=== PATIENT | male | born 2005 | race Caucasian/White ===

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

== ENCOUNTER 2024-05-05 14:39 | Emergency (ER) | payer OTHER, SELFPAY ==
--- NOTE | ~2024-05-05 | XR_ITS ---
EXAMINATION: XR wrist RT min 3V, XR forearm RT 2V DATE: 05/05/2024 15:24 INDICATION: Right wrist and forearm injury post fall from ladder TECHNIQUE: 1. Anteroposterior and lateral views of the right forearm were obtained. 2. Posteroanterior, ulnar deviation, oblique, and lateral views of the right wrist were obtained. COMPARISON: none FINDINGS: 2-3 mm posterior and 1 mm radial displacement of an intra-articular fracture extending across the dis albaro right radius. The fracture involves the scaphoid fossa where there is up to 2 mm step-off. The fr acture extends radially across the radial sided cortex at the base of the radial styloid process. Tin y calcific density near the tip of the ulnar styloid process without definitive donor site which coul d represent either age-indeterminate tiny avulsion fracture fragment or heterotopic ossicle related t o chronic soft tissue injury. No fracture or proximal right forearm or in the visualized right hand. All normal joint spaces at the right elbow, wrist and visualized hand. IMPRESSION: 1. Mildly displaced intra-articular fracture at the distal right radius. 2. Possible tiny age-indeterminate ulnar styloid avulsion fracture fragment versus tiny heterotopic o ssicle related to chronic soft tissue injury. Reviewed, dictated and finalized at location A. IMPRESSION: 1. Mildly displaced intra-articular fracture at the distal right radius. 2. Possible tiny age-indeterminate ulnar styloid avulsion fracture fragment daxa kevin tiny heterotopic ossicle related to chronic soft tissue injury.
[2024-05-05 15:10] VITALS: BP 153/84; PULSE 78; RESP 16; TEMP 36.4; O2SAT 100
--- NOTE | 2024-05-05 15:15 | WC.ED.TRAUMA ---
HPI - Trauma General Chief Complaint: Extremity Injury, Upper <Josephine Amador APRN - Last Filed: 05/05/24 15:16> Stated Complaint: fall - arm pain <Josephine Amador APRN - Last Filed: 05/05/24 15:16> Time Seen by Provider: 05/05/24 15:05 <Josephine Amador APRN - Last Filed: 05/05/24 15:16> Focused HPI: Patient is a 18-year-old male who presents to the ER after falling off a ladder and landing on his R arm. GENERAL: Well-appearing, well-nourished, and in no acute distress. HEAD: Normocephalic, atraumatic. CHEST: Clear to auscultation. ?No respiratory distress. HEART: Regular rate and rhythm.? NEURO: ?Alert and oriented x3. Patient screened in triage and initial orders placed.? ?Additional care and disposition to be based upon?diagnostic testing and treatment. <Josephine Amador APRN - Last Filed: 05/05/24 15:16> History of Present Illness HPI narrative: Patient 18-year-old gentleman presents emergency department chief complaint of right wrist pain. Patient reports that fell off a ladder landed on his right wrist and had a PVC pipe with the wrist. Patient reports no laceration no head injury patient denies back pain chest pain or abdominal pain <Santy Oliva MD - Last Filed: 05/05/24 19:44> Related Data Allergies/Adverse Reactions: Allergies Allergy/AdvReac Type Severity Reaction Status Date / Time No Known Allergies Allergy Verified 03/14/22 11:08 <Josephine Amador APRN - Last Filed: 05/05/24 15:16> Review of Systems Review of Systems: A 10 system review of systems was completed on the patient and is negative except for what is stated in the HPI. Nursing and ancillary documentation was reviewed. <Santy Oliva MD - Last Filed: 05/05/24 19:44> PMFSH Social History Social History: Social History Smoking status: Current every day smoker Alcohol intake: never Substance use: current Living arrangements: with family Occupation/Education: occupation Gender identity (if verbalized by the patient): Male Sexual Orientation (if Verbalized by the Patient): Straight or Heterosexual Spiritual care concerns: No <Josephine Amador APRN - Last Filed: 05/05/24 15:16> Exam Narrative: GENERAL: Well-appearing, well-nourished, and in no acute distress. HEAD: Normocephalic, atraumatic. EYES: PERRLA and EOMI. ENT: Nares clear, no rhinorrhea or epistaxis. Mucous membranes moist. NECK: Supple. CHEST: Clear to auscultation. No respiratory distress. HEART: Regular rate and rhythm. No murmur heard. Normal peripheral pulses. ABDOMEN: Soft, nontender, nondistended, normal active bowel sounds. EXTREMITIES: Normal range of motion there is tenderness to palpation in the right wrist. No edema. SKIN: Warm, dry, no rash. NEURO: No focal deficits. Alert and oriented x3. PSYCH: Normal mood and affect. <Santy Oliva MD - Last Filed: 05/05/24 19:44> Course Vital Signs Vital signs: Vital Signs Temperature 36.4 C 05/05/24 15:10 Pulse Rate 78 05/05/24 15:10 Respiratory Rate 16 05/05/24 15:10 Blood Pressure 153/84 H 05/05/24 15:10 Pulse Oximetry 100 05/05/24 15:10 Oxygen Delivery Room Air 05/05/24 15:10 Temperature 36.4 C 05/05/24 19:19 Pulse Rate 80 05/05/24 19:19 Respiratory Rate 18 05/05/24 19:19 Blood Pressure 142/82 H 05/05/24 19:19 Pulse Oximetry 100 05/05/24 19:19 Oxygen Delivery Room Air 05/05/24 15:10 <Josephine Amador APRN - Last Filed: 05/05/24 15:16> Vital Signs Temperature 36.4 C 05/05/24 15:10 Pulse Rate 78 05/05/24 15:10 Respiratory Rate 16 05/05/24 15:10 Blood Pressure 153/84 H 05/05/24 15:10 Pulse Oximetry 100 05/05/24 15:10 Oxygen Delivery Room Air 05/05/24 15:10 Temperature 36.4 C 05/05/24 19:19 Pulse Rate 80 05/05/24 19:19 Respiratory Rate 18 05/05/24 19:19 Blood Pressure 142/82 H 05/05/24 19:19 Pulse Oximetry 100 05/05/24 19:19 Oxygen Delivery Room Air 05/05/24 15:10 <Santy Oliva MD - Last Filed: 05/05/24 19:44> MDM - Trauma MDM Narrative Medical decision making narrative: Differential diagnosis includes fracture, sprain, contusion Plain film x-ray showed 2-3 mm posterior and 1 mm radial displacement of an intra-articular fracture extending across the distal right radius. The fracture involves the scaphoid fossa where there is up to 2 mm step-off. The fracture extends radially across the radial sided cortex at the base of the radial styloid process. Tiny calcific density near the tip of the ulnar styloid process without definitive donor site which could represent either age-indeterminate tiny avulsion fracture fragment or heterotopic ossicle related to chronic soft tissue injury. No fracture or proximal right forearm or in the visualized right hand. All normal joint spaces at the right elbow, wrist and visualized hand. IMPRESSION: 1. Mildly displaced intra-articular fracture at the distal right radius. 2. Possible tiny age-indeterminate ulnar styloid avulsion fracture fragment versus tiny heterotopic ossicle related to chronic soft tissue injury. Case was discussed with orthopedics who recommended Hand surgery be involved case was discussed with Dr. Avina <Santy Oliva MD - Last Filed: 05/05/24 19:44> Discharge Plan Discharge Clinical Impression: Distal radius fracture, right <Josephine Amador APRN - Last Filed: 05/05/24 15:16> Patient Disposition: Home, Self-Care <Josephine Amador APRN - Last Filed: 05/05/24 15:16> Condition: Stable <Josephine Amador APRN - Last Filed: 05/05/24 15:16> Instructions: Antibiotic Form, Wrist Fracture in Adults (ED) <Josephine Amador APRN - Last Filed: 05/05/24 15:16> Additional Instructions: Please call Dr. Harris's office in the morning. <Josephine Amador APRN - Last Filed: 05/05/24 15:16> Patient Language: Argentine <Josephine Amador APRN - Last Filed: 05/05/24 15:16> Prescriptions: New hydrocodone-acetaminophen 5-325 mg tablet 1 tablet PO Q6H PRN (Reason: pain) 3 Days Qty: 12 0RF <Josephine Amador APRN - Last Filed: 05/05/24 15:16> Follow-up/Referrals: Janey Avina MD [Physician] - Karel Pandya MD [Primary Care Provider] - <Josephine Amador APRN - Last Filed: 05/05/24 15:16> Time of Disposition: 19:42 <Josephine Amador APRN - Last Filed: 05/05/24 15:16> 19:42 <Santy Oliva MD - Last Filed: 05/05/24 19:44>
--- OUTSIDE RECORDS SUMMARY | 2024-05-05 17:18 | XMS_ITS | Referral Summary ---
Author Organization [facility] Address [address] [place] [address] Care Team Providers Care Peoplesoft Financials Consultant Name Role Phone Brigitte Glasgow MD Primary Care Provider [phone] Source Comments [facility],non-owned Affiliates and Associated Physician Practices is amultiple site organization consisting of ambulatory clinics and hospital sitesin [place], [place], [place] and [place]. This disclosure is being madepursuant to the Care Everywhere program and may not contain all information available regarding this patient. Last updated 17.[facility] [employer] Allergies No known active allergies Medications * Be aware that medications may not be up to date on this document. Alwaysverify current medications with the patient. Medication Sig Dispensed Refills Start Date End Date Status fluticasone propionate (FLONASE) 50 MCG/ACT nasal sprayIndications:Acute sinusitis, recurrence not specified, unspecified location [place] 2 (two) sprays into each nostril once daily 1 Each 12/13/2020 Active albuterol HFA (PROVENTIL;VENTOLIN;MD OAIR) 108 (90 Base) MCG/ACT inhalerIndications:Acu te bronchitis, unspecified organism Inhale 2 (two) puffs by mouth every 6 hours as needed for Wheezing or Cough 1 g 12/13/2020 Active Active Problems No known active problems Social History Tobacco Use Types Packs/Day Years Used Date Smoking Tobacco: Never Smokeless Tobacco: Never Alcohol Use Standard Drinks/Week Comments Never 0 (1 standard drink = 0.6 oz pur e alcohol) AUDIT-C Answer Date Recorded Q1: How often do you have a drink containing alc ohol? Never 10/19/2019 Average Number of Drinks Not on file 08/30/2 020 Frequency of Binge Drinking Not on file 09/21 Sex and Gender Information Value Date Recorded Sex Assigned at Not on file Gender Identity Not on file Sexual Orientation Not on file Last Filed Vital Signs Vital Sign Reading Time Taken Comments Blood Pressure 132/70 08/25/2020 6:30 PM CDT Pulse 94 12/13/2020 6:36 PM CDT Temperature 37.1 C (98.8 F) 12/13/2020 6:36 PM CDT Respiratory Rate 18 12/13/2020 6:36 PM CDT Oxygen Saturation 95% 12/13/2020 6:36 PM CDT Inhaled Oxygen Concentration - - Weight 77.1 kg (170 lb) 12/13/2020 6:36 PM CDT Height 172.7 cm (5' 8 ) 12/13/2020 6:36 PM CDT Body Mass Index 25.85 12/13/2020 6:36 PM CDT Plan of Treatment Not on file Care Teams Pe[employer] Financ[employer] Consultant Relationship Specialty Start Date End Date Brigitte Glasgow MD [address] [facility] [place] [address] PCP - General Pediatrics 10/19/19
--- OUTSIDE RECORDS SUMMARY | 2024-05-05 17:18 | XMS_ITS | Patient Health Summary ---
Author Organization [facility] Address [address] [place] [address] Care Team Providers Care Plaster Model And Mold Maker Name Role Phone Brigitte Glasgow MD Primary Care Provider [phone] Note from [facility],non-owned Affiliates and Associated Physician Practices is amultiple site organization consisting of ambulatory clinics and hospital sitesin [place], [place], [place] and [place]. This disclosure is being madepursuant to the Care Everywhere program and may not contain all information available regarding this patient. Last updated 17.[facility] [employer] Allergies No known active allergies Medications * Be aware that medications may not be up to date on this document. Alwaysverify current medications with the patient. * fluticasone propionate (FLONASE) 50 MCG/ACT nasal spray(Started 12/13/2020) [place] 2 (two) sprays into each nostril once daily * albuterol HFA (PROVENTIL;VENTOLIN;PROAIR) 108 (90 Base) MCG/ACT inhaler (Started 12/13/2020) Inhale 2 (two) puffs by mouth every 6 hours as needed for Wheezing or Cough Active Problems No known active problems Social History Tobacco Use Types Packs/Day Years Used Date Smoking Tobacco: Never Smokeless Tobacco: Never Alcohol Use Standard Drinks/Week Comments Never 0 (1 standard drink = 0.6 oz pur e alcohol) AUDIT-C Answer Date Recorded Q1: How often do you have a drink containing alc ohol? Never 10/19/2019 Average Number of Drinks Not on file 020 Frequency of Binge Drinking Not on [...] Mass Index 25.85 12/13/2020 6:36 PM CDT Procedures * SARS-COV-2 (COVID-19) AG (AMB) POCT(Performed 12/13/2020) Performed for Acute bronchitis, unspecified organism * STREP A SCREEN - POINT OF CARE (AMB) STL(Performed 08/25/2020) Performed for Acute pharyngitis, unspecified etiology Results * SARS-COV-2 (COVID-19) AG (AMB) POCT (12/13/2020 6:46 PM CDT) SARS-CoV-2 Ag Negative Negative [facility] Lot # [id number] [facility] Expiration Date 03/09/22 [facility] Instrument Serial Number [id number] [facility] COVID Internal Control Acceptable Acceptable [facility] Microbiology SPECIMEN FROM NASAL FOSSAE / Unknown 12/13/2020 6:46 PM CDT Frantz Skinner RADIO INTERFERENCE TROUBLE SHOOTER-DIGITAL CONTENT SPECIALIST LAB - POINT OF CARE ORDERABLES [facility] [address] [phone] * STREP A SCREEN (08/25/2020 6:24 PM CDT) Strep A Rapid POCT Negative Negative [facility] Strep A Internal Control Present [facility] Lot # [id number] [facility] Expiration Date [id number] [facility] Throat ENTIRE THROAT (SURFACE REGION OF NECK) / Unknown 08/25/2020 6:24 PM CDT Reesedemetrius Gaitan RADIO INTERFERENCE TROUBLE SHOOTER-DIGITAL CONTENT SPECIALIST LAB - POINT OF CARE ORDERABLES [facility] [address] [phone] Care Teams Plaster Model And Mold Maker Relationship Specialty Start Date End Date Brigitte Glasgow MD [address] [facility] [place] [address] PCP - General Pediatrics 10/19/19
--- OUTSIDE RECORDS SUMMARY | 2024-05-05 17:18 | XMS_ITS | Encounter Summary ---
Author Organization [facility] [address] [place] [address] Care Team Providers Care Knitting Tester Name Role Phone Brigitte Glasgow MD Primary Care Provider [phone] Reason for Visit * Reason Onset Date Comments Appointment 09/16/2019 Returned Call 09/16/2019 Encounter Details Date Type Department Care Team (Late st Contact Info) Description 09/16/2019 Telephone [facility] [address] [facility] [address] [place] [address] Provider, Baldomero Prather [place] Appointment; Returned Call Social History Tobacco Use Types Packs/Day Years Used Date Smoking Tobacco: Never Assessed Sex and Gender Information Value Date Recorded Sex Assigned at Not on file Gender Identity Not on file Sexual Orientation Not on file COVID-19 Exposure Response Date Recorded In the last month, have you been in contact with someone who was confirmed or suspected to have Coronavirus / COVID-19? Yes 09/15/2019 5:04 PM CDT documented as of this encounter Miscellaneous Notes * Telephone Encounter - Nery Martin APRN-CNP - 09/16/2019 11:07 AM CDT Mom states that pt is coming in for COVID swab, he has order from his PCP. Mother advised that we do not do only covid swabbing here ordered by PCP. Mother states understanding. * Telephone Encounter - Lee Ann Mendenhall - 09/16/2019 10:53 AM CDT Who is calling?MOTHER If other than self is caller listed on the HIPAA? NO HIPAA If caller is anyone other than listed above, where are they calling from? CELL PHONE What is the reason for call? QUESTION ABOUT VISIT Expected Response from the Clinic? CALL BACK JEANNIE CHASE [phone] documented in this encounter Plan of Treatment Not on file documented as of this encounter Visit Diagnoses Not on filedocumented in this encounter Additional Health Concerns Infection Onset Date Last Indicated Resolved Time COVID-19 Under Investigation 12/13/2020 12/13/2020 12/13/2020 6:48 PM CDT documented as of this encounter Care Teams Knitting Tester Relationship Specialty Start Date End Date Brigitte Glasgow MD [address] [facility] [place] [address] PCP - General Pediatrics 10/19/19 documented as of this encounter
--- OUTSIDE RECORDS SUMMARY | 2024-05-05 17:18 | XMS_ITS | Clinical Summary ---
Author Organization [facility] Address [address] [place] [id number] Care Team Providers Care Contour Path Tape Mill Operator Name Role Phone Brigitte Glasgow MD Primary Care Provider [phone] Allergies No known active allergies Medications No known medications Active Problems No known active problems Encounters Date Type Department Care Team Description 03/10/2024 12:43 PM PEER COUNSELOR - 03/10/2024 11:59 PM PEER COUNSELOR Hospital Encounter [address] [address] Pilonidal abscess Discharge Disposition: Discharge to home or self care 03/10/2024 12:15 PM PEER COUNSELOR Office Visit [facility] Care at [address] [address] Nery Martin NP Pilonidal abscess (Primary Dx) from Last 3 Months Social History Tobacco Use Types Packs/Day Years Used Date Smoking Tobacco: Never Sex and Gender Information Value Date Recorded Sex Assigned at Not on file Legal Sex Male 11:22 AM CDT Gender Identity Not on file Sexual Orientation Not on file Obstetrics History Last Filed Vital Signs Vital Sign Reading Time Taken Comments Blood Pressure 116/58 03/10/2024 12:25 PM PEER COUNSELOR Pulse 104 03/10/2024 12:25 PM PEER COUNSELOR Temperature 36.9 C (98.4 F) 03/10/2024 12:25 PM PEER COUNSELOR Respiratory Rate 20 03/10/2024 12:25 PM PEER COUNSELOR Oxygen Saturation 99% 03/10/2024 12:25 PM PEER COUNSELOR Inhaled Oxygen Concentration - - Weight 98.4 kg (217 lb) 03/10/2024 12:25 PM PEER COUNSELOR Height 167.6 cm (5' 6 ) 09/23/2018 9:21 AM CDT Body Mass Index - - Plan of Treatment Health Maintenance Due Date Last Done Comments Depression Screening 2003 Hepatitis C Screening 2003 Meningococcal B Vaccine (1 of 2 - Standard) 2019 Regular Well Visit/Exam 18-64 07/26/2021 Covid-19 Vaccine (3 - season) 2023 10/09/2020, 09/18/2020 Influenza Vaccine (#1) 2023 DTaP/Tdap/Td Vaccine (7 - Td or Tdap) 09/23/2024 09/23/2014, 07/28/2008, 01/10/2005, Additional history exists Hepatitis B Screening Completed 08/23/2004 , 2003, 2003 Pneumococcal vaccine <65 Completed 005, 02/11/2004, 2003, Additional history exists Varicella Vaccines Completed 09/24/2008, 01/10/2005 Meningococcal Vaccine Aged Out 09/23/2014 No roberto jasmyne eligible based on patient's age to complete this topic HPV Vaccines Completed 09/18/2018, 07/24/2017 Procedures Procedure Name Priority Date/Time Associated Diagnosis Comments AEROBIC AND ANAEROBIC CULTURE AND GRAM STAIN Routine 03/10/2024 12:43 PM PEER COUNSELOR Pilonidal abscess INCISION AND DRAINAGE Routine 03/10/2024 12:15 PM PEER COUNSELOR Pilonidal abscess from Last 3 Months Results * (ABNORMAL) Aerobic and anaerobic culture and gram stain Abscess Buttocks (03/10/2024 12:43 PM PEER COUNSELOR) Direct Specimen Exam Stain: Few polymorphonuclear leukocytes seen. Moderate Gram Negative Bacilli Moderate Gram Positive [place] Comment:Testing performed by : [facility], [address] [place] [address] Report Final Report: Moderate Mixed aerobic and anaerobic microorganisms (.) [place] Comment:Testing performed by : [facility], [address] [place]., [address] Organism MIXED AEROBIC AND ANAEROBIC MICROORGANISMS [place] Abscess (Buttocks) 03/10/2024 12:43 PM PEER COUNSELOR 03/10/2024 10:42 PM PEER COUNSELOR Narrative [place] VANCE - 03/14/2024 12:01 PM PEER COUNSELOR Specimen received on an ESwab. Testing performed by [facility] Microbiology Laboratory ([phone]) Specimens submitted from normally sterile body sites will have all bacterial morphotypes identified. Specimens that contain grossly mixed jerome and/or are from body sites that are not normally sterile will be examined for Staphylococcus aureus, Pseudomonas aeruginosa, beta-hemolytic strep, vancomycin-resistant Enterococcus, Bacteroides, Parabacteroides, Clostridium perfringens and fungus. If any of these are isolated, the organism will be reported. Current interpretive data was last revised on 2019. Nery Martin NP [facility] Final Result [place] [id number] [address] Department of Laboratories [place] [id number] * Incision and Drainage (03/10/2024 12:15 PM PEER COUNSELOR) Narrative Speedy Flores MD - 03/10/2024 12:15 PM PEER COUNSELOR Nery Martin NP 03/10/2024 12:49 PM Incision and Drainage Performed by: Nery Martin NP Authorized by: Nery Martin NP Consent Given by: Patient Timeout: prior to procedure the correct patient, procedure, and site was verified Verbal consent obtained: Yes Risks, alternatives, and patient questions discussed: Yes Type: Abscess Location: gluteal cleft. Scalpel size: 11 Incision type: Single straight Incision depth: Subcutaneous Complexity: Simple Drainage: Purulent (malodorous) Drainage amount: Moderate Wound treatment: Wound left open Patient tolerance: Patient tolerated the procedure well with no immediate complications Nery Martin NP IN CLINIC/BEDSIDE ORDERABLES Fi nal Result from Last 3 Months Insurance [facility] H[facility]/PPO Address: [address] [address] [place] [address] [employer] [facility] H[employer]/PPO Address: [address] [address] [place] [address] Care Teams Contour Path Tape Mill Operator Relationship Specialty Start Date End Date Brigitte Glasgow MD [address] [place] [address] PCP - General Pediatrics 09/20/18
--- OUTSIDE RECORDS SUMMARY | 2024-05-05 17:18 | XMS_ITS | Clinical Summary ---
Author Organization [facility] Address [address] [place] [address] Care Team Providers Care Inweaver Name Role Phone Brigitte Glasgow MD Primary Care Provider [phone] Source Comments [facility],non-owned Affiliates and Associated Physician Practices is amultiple site organization consisting of ambulatory clinics and hospital sitesin [place], [place], [place] and [place]. This disclosure is being madepursuant to the Care Everywhere program and may not contain all information available regarding this patient. Last updated 17.[facility] [employer] Allergies No known active allergies Medications * Be aware that medications may not be up to date on this document. Alwaysverify current medications with the patient. Medication Sig Dispensed Refills Start Date End Date Status fluticasone propionate (FLONASE) 50 MCG/ACT nasal sprayIndications:Acute sinusitis, recurrence not specified, unspecified location [place] 2 (two) sprays into each nostril once daily 1 Each 12/13/2020 Active albuterol HFA (PROVENTIL;VENTOLIN;IA OAIR) 108 (90 Base) MCG/ACT inhalerIndications:Acu te [...] 12/13/2020 6:36 PM CDT Plan of Treatment Health Maintenance Due Date Last Done Comments HIV SCREENING 07/26/2018 HPV VACCINE (1 - Male 3-dose series) 07/26/2018 MENINGOCOCCAL (Group B) VACCINE SHARED DECISION-MAKING (1 of 2 - Standard) 2019 HEPATITIS C SCREENING 07/22/2021 DTAP/TDAP/TD VACCINES (1 - Tdap) 07/26/2022 HEPATITIS B VACCINE (1 of 3 - 19+ 3-dose series) 07/26/2022 COVID-19 VACCINE (3 - 2023-2 5 season) 2023 10/09/2020, 09/18/2020 INFLUENZA VACCINE (#1) 2023 DEPRESSION SCREENING 02/20/2024 10/19/2019 ZOSTER VACCINE (1 of 2) 07/26/2053 HIB VACCINE Aged Out No longer eligi ble based on patient's age to complete this topic MENINGOCOCCAL GROUPS A/C/Y/W VACCINE Aged Out No longer eligible b ased on patient's age to complete this topic PNEUMOCOCCAL VACCINE Aged Out No long er eligible based on patient's age to complete this topic Care Teams Inweaver Relationship Specialty Start Date End Date Brigitte Glasgow MD [address] [facility] [place] [address] PCP - General Pediatrics 10/19/19
--- OUTSIDE RECORDS SUMMARY | 2024-05-05 17:18 | XMS_ITS | Referral Summary ---
Author Organization [facility] Medical Office Building B Address [address] [place] [address] Care Team Providers Care Operater Name Role Phone Brigitte Glasgow MD Primary Care Provider [phone] Encounters Date Type Department Care Team Description 03/10/2024 12:43 PM SHOWER SCREEN INSTALLER - 03/10/2024 11:59 PM SHOWER SCREEN INSTALLER Hospital Encounter [address] [address] Pilonidal abscess Discharge Disposition: Discharge to home or self care 03/10/2024 12:15 PM SHOWER SCREEN INSTALLER Office Visit [facility] [address] [address] Nery Martin NP Pilonidal abscess (Primary Dx) from Last 3 Months Allergies No known active allergies Medications No known medications Active Problems No known active problems Social History Tobacco Use Types Packs/Day Years Used Date Smoking Tobacco: Never Sex and Gender Information Value Date Recorded Sex Assigned at Not on file Legal Sex Male 11:22 AM CDT Gender Identity Not on file Sexual Orientation Not on file Last Filed Vital Signs Vital Sign Reading Time Taken Comments Blood Pressure 116/58 03/10/2024 12:25 PM SHOWER SCREEN INSTALLER Pulse 104 03/10/2024 12:25 PM SHOWER SCREEN INSTALLER Temperature 36.9 C (98.4 F) 03/10/2024 12:25 PM SHOWER SCREEN INSTALLER Respiratory Rate 20 03/10/2024 12:25 PM SHOWER SCREEN INSTALLER Oxygen Saturation 99% 03/10/2024 12:25 PM SHOWER SCREEN INSTALLER Inhaled Oxygen Concentration - - Weight 98.4 kg (217 lb) 03/10/2024 12:25 PM SHOWER SCREEN INSTALLER Height 167.6 cm (5' 6 ) 09/23/2018 9:21 AM CDT Body Mass Index - - Plan of Treatment Not on file Procedures Procedure Name Priority Date/Time Associated Diagnosis Comments AEROBIC AND ANAEROBIC CULTURE AND GRAM STAIN Routine 03/10/2024 12:43 PM SHOWER SCREEN INSTALLER Pilonidal abscess INCISION AND DRAINAGE Routine 03/10/2024 12:15 PM SHOWER SCREEN INSTALLER Pilonidal abscess from Last 3 Months Results * (ABNORMAL) Aerobic and anaerobic culture and gram stain Abscess Buttocks (03/10/2024 12:43 PM SHOWER SCREEN INSTALLER) Direct Specimen Exam Stain: Few polymorphonuclear leukocytes seen. Moderate Gram Negative Bacilli Moderate Gram Positive Cocci Comment:Testing performed by : [facility], [address] [place]., [address] Report Final Report: Moderate Mixed aerobic and anaerobic microorganisms (.) [facility] Comment:Testing performed by : [facility], [address] [place]., [address] Organism MIXED AEROBIC AND ANAEROBIC MICROORGANISMS [facility] Abscess (Buttocks) 03/10/2024 12:43 PM SHOWER SCREEN INSTALLER 03/10/2024 10:42 PM SHOWER SCREEN INSTALLER Narrative [facility] - 03/14/2024 12:01 PM SHOWER SCREEN INSTALLER Specimen received on an ESwab. Testing performed by [facility] Microbiology Laboratory ([phone]) Specimens submitted from normally sterile body sites [...] 2019. Nery Martin NP LAB MICROBIOLOGY - [facility] Final Result [facility] [id number] [address] Department [place] [address] * Incision and Drainage (03/10/2024 12:15 PM SHOWER SCREEN INSTALLER) Narrative Speedy Flores MD - 03/10/2024 12:15 PM SHOWER SCREEN INSTALLER Nery Martin NP 03/10/2024 12:49 PM Incision [...] nal Result from Last 3 Months Insurance [facility] H[facility]/PPO Address: [address] [phone] CHOICE PLUS [facility] HMO/PPO Address: [facility] [id number] [place] [id number] Care Teams Operater Relationship Specialty Start Date End Date Brigitte Glasgow MD [address] [place] [address] PCP - General Pediatrics 09/20/18
--- OUTSIDE RECORDS SUMMARY | 2024-05-05 18:03 | XMS_ITS | Encounter Summary ---
Author Organization [facility] [address] [place] [address] Care Team Providers Care Chemical Milling Processor Name Role Phone Brigitte Glasgow MD Primary Care Provider [phone] Reason for Visit * Reason Onset Date Comments Appointment 09/16/2019 Returned Call 09/16/2019 Encounter Details Date Type Department Care Team (Late st Contact Info) Description 09/16/2019 Telephone [facility] [address] [facility] [address] [place] [address] Provider, Baldomero Prather [place] Appointment; Returned Call Social History Tobacco Use [...] from the Clinic? CALL BACK JEANNIE CHASE [phone] documented in this encounter Plan of Treatment Not on file documented as of this encounter Visit Diagnoses Not on filedocumented in this encounter Additional Health Concerns Infection Onset Date Last Indicated Resolved Time COVID-19 Under Investigation 12/13/2020 12/13/2020 12/13/2020 6:48 PM CDT documented as of this encounter Care Teams Chemical Milling Processor Relationship Specialty Start Date End Date Brigitte Glasgow MD [address] [facility] [place] [address] PCP - General Pediatrics 10/19/19 documented as of this encounter
--- OUTSIDE RECORDS SUMMARY | 2024-05-05 18:03 | XMS_ITS | Patient Health Summary ---
Author Organization [facility] Address [address] [facility] [place] [address] Care Team Providers Care Gemologist Name Role Phone Brigitte Glasgow MD Primary Care Provider Note from [facility],non-owned Affiliates and Associated Physician Practices is amultiple site organization consisting of ambulatory clinics and hospital sitesin [place], [place], [place] and [place]. This disclosure is being madepursuant to the Care Everywhere program and may not contain all information available regarding this patient. Last updated 17.[facility] [employer] Allergies No known active allergies Medications * Be aware that medications may not be up to date on this document. Alwaysverify current medications with the patient. * fluticasone propionate (FLONASE) 50 MCG/ACT nasal spray(Started 12/13/2020) [place] 2 (two) sprays into each nostril once [...] Negative Negative [facility] Lot # [id number] [facility] Expiration Date 03/09/22 [facility] Instrument Serial Number [id number] [facility] COVID Internal Control Acceptable Acceptable [facility] Microbiology SPECIMEN FROM NASAL FOSSAE / Unknown 12/13/2020 6:46 PM CDT Frantz Skinner MOBILE UI/UX DESIGNER-HYDROELECTRIC PLANT MAINTAINER LAB - POINT OF CARE ORDERABLES [facility] [address] [phone] * STREP A SCREEN (08/25/2020 6:24 PM CDT) Strep A Rapid POCT Negative Negative [facility] Strep A Internal Control Present [facility] Lot # [id number] [facility] Expiration Date [id number] [facility] Throat ENTIRE THROAT (SURFACE REGION OF NECK) / Unknown 08/25/2020 6:24 PM CDT Reesedemetrius Gaitan MOBILE UI/UX DESIGNER-HYDROELECTRIC PLANT MAINTAINER LAB - POINT OF CARE ORDERABLES [facility] [address] [phone] Care Teams Gemologist Relationship Specialty Start Date End Date Brigitte Glasgow MD [address] [facility] [place] [address] PCP - General Pediatrics 10/19/19
--- OUTSIDE RECORDS SUMMARY | 2024-05-05 18:03 | XMS_ITS | Clinical Summary ---
Author Organization [facility] Medical Office Building B Address [address] [place] [address] Care Team Providers Care Recreational Director Name Role Phone Brigitte Glasgow MD Primary Care Provider [phone] Allergies No known active allergies Medications No known medications Active Problems No known active problems Encounters Date Type Department Care Team Description 03/10/2024 12:43 PM INVESTMENT STRATEGIST - 03/10/2024 11:59 PM INVESTMENT STRATEGIST Hospital Encounter [address] [address] Pilonidal abscess Discharge Disposition: Discharge to home or self care 03/10/2024 12:15 PM INVESTMENT STRATEGIST Office Visit [facility] Medical [facility] Care at [address] [address] Nery Martin NP Pilonidal abscess [...] Comments Blood Pressure 116/58 03/10/2024 12:25 PM INVESTMENT STRATEGIST Pulse 104 03/10/2024 12:25 PM INVESTMENT STRATEGIST Temperature 36.9 C (98.4 F) 03/10/2024 12:25 PM INVESTMENT STRATEGIST Respiratory Rate 20 03/10/2024 12:25 PM INVESTMENT STRATEGIST Oxygen Saturation 99% 03/10/2024 12:25 PM INVESTMENT STRATEGIST Inhaled Oxygen Concentration - - Weight 98.4 kg (217 lb) 03/10/2024 12:25 PM INVESTMENT STRATEGIST Height 167.6 cm (5' 6 ) 09/23/2018 [...] AND GRAM STAIN Routine 03/10/2024 12:43 PM INVESTMENT STRATEGIST Pilonidal abscess INCISION AND DRAINAGE Routine 03/10/2024 12:15 PM INVESTMENT STRATEGIST Pilonidal abscess from Last 3 Months Results * (ABNORMAL) Aerobic and anaerobic culture and gram stain Abscess Buttocks (03/10/2024 12:43 PM INVESTMENT STRATEGIST) Direct Specimen Exam Stain: Few polymorphonuclear leukocytes seen. Moderate Gram Negative Bacilli Moderate Gram Positive Cocci Comment:Testing performed by : [facility], [address] [facility] [place]., [address] Report Final Report: Moderate Mixed aerobic and anaerobic microorganisms (.) [facility] Comment:Testing performed by : [facility], [address] [place]., [address] Organism MIXED AEROBIC AND ANAEROBIC MICROORGANISMS [facility] Abscess (Buttocks) 03/10/2024 12:43 PM INVESTMENT STRATEGIST 03/10/2024 10:42 PM INVESTMENT STRATEGIST Narrative [facility] VANCE - 03/14/2024 12:01 PM INVESTMENT STRATEGIST Specimen received on an ESwab. Testing performed by [facility] Microbiology Laboratory ([phone]) Specimens submitted from normally sterile body sites [...] 2019. Nery Martin NP LAB MICROBIOLOGY - [facility] Final Result [facility] [id number] Department of Laboratories [place] [id number] * Incision and Drainage (03/10/2024 12:15 PM INVESTMENT STRATEGIST) Narrative Speedy Flores MD - 03/10/2024 12:15 PM INVESTMENT STRATEGIST Nery Martin NP 03/10/2024 12:49 PM Incision [...] nal Result from Last 3 Months Insurance [facility] CHOICE PLUS Care Teams Recreational Director Relationship Specialty Start Date End Date Brigitte Glasgow MD [address] [place] [address] PCP - General Pediatrics 09/20/18
--- OUTSIDE RECORDS SUMMARY | 2024-05-05 18:03 | XMS_ITS | Referral Summary ---
Author Organization [facility] Medical Office Building B Address [address] [place] [address] Care Team Providers Care First Responder Name Role Phone Brigitte Glasgow MD Primary Care Provider [phone] Encounters Date Type Department Care Team Description 03/10/2024 12:43 PM BUILDING SUPERVISOR - 03/10/2024 11:59 PM BUILDING SUPERVISOR Hospital Encounter [address] [address] Pilonidal abscess Discharge Disposition: Discharge to home or self care 03/10/2024 12:15 PM BUILDING SUPERVISOR Office Visit [facility] Medical [facility] Care at [address] [address] Nery Martin NP Pilonidal abscess [...] Comments Blood Pressure 116/58 03/10/2024 12:25 PM BUILDING SUPERVISOR Pulse 104 03/10/2024 12:25 PM BUILDING SUPERVISOR Temperature 36.9 C (98.4 F) 03/10/2024 12:25 PM BUILDING SUPERVISOR Respiratory Rate 20 03/10/2024 12:25 PM BUILDING SUPERVISOR Oxygen Saturation 99% 03/10/2024 12:25 PM BUILDING SUPERVISOR Inhaled Oxygen Concentration - - Weight 98.4 kg (217 lb) 03/10/2024 12:25 PM BUILDING SUPERVISOR Height 167.6 cm (5' 6 ) 09/23/2018 9:21 AM CDT Body Mass Index - - Plan of Treatment Not on file Procedures Procedure Name Priority Date/Time Associated Diagnosis Comments AEROBIC AND ANAEROBIC CULTURE AND GRAM STAIN Routine 03/10/2024 12:43 PM BUILDING SUPERVISOR Pilonidal abscess INCISION AND DRAINAGE Routine 03/10/2024 12:15 PM BUILDING SUPERVISOR Pilonidal abscess from Last 3 Months Results * (ABNORMAL) Aerobic and anaerobic culture and gram stain Abscess Buttocks (03/10/2024 12:43 PM BUILDING SUPERVISOR) Direct Specimen Exam Stain: Few polymorphonuclear leukocytes seen. Moderate Gram Negative Bacilli Moderate Gram Positive Cocci Comment:Testing performed by : [facility], [address] [place]., [address] Report Final Report: Moderate Mixed aerobic and anaerobic microorganisms (.) [facility] Comment:Testing performed by : [facility], [address] [place]., [address] Organism MIXED AEROBIC AND ANAEROBIC MICROORGANISMS [facility] Abscess (Buttocks) 03/10/2024 12:43 PM BUILDING SUPERVISOR 03/10/2024 10:42 PM BUILDING SUPERVISOR Narrative [facility] - 03/14/2024 12:01 PM BUILDING SUPERVISOR Specimen received on an ESwab. Testing performed by [facility] Microbiology Laboratory ([phone]) Specimens submitted from normally sterile body sites [...] - [facility] Final Result [facility] [address] [address] [place] [address] * Incision and Drainage (03/10/2024 12:15 PM BUILDING SUPERVISOR) Narrative Speedy Flores MD - 03/10/2024 12:15 PM BUILDING SUPERVISOR Nery Martin NP 03/10/2024 12:49 PM Incision [...] nal Result from Last 3 Months Insurance CHOICE PLUS Care Teams First Responder Relationship Specialty Start Date End Date Brigitte Glasgow MD [address] [place] [address] PCP - General Pediatrics 09/20/18
--- OUTSIDE RECORDS SUMMARY | 2024-05-05 18:03 | XMS_ITS | Referral Summary ---
Author Organization [facility] Address [address] [facility] [place] [address] Care Team Providers Care Licensed Midwife Name Role Phone Brigitte Glasgow MD Primary Care Provider [phone] Source Comments [facility],non-owned Affiliates and Associated Physician Practices is amultiple site organization consisting of ambulatory clinics and hospital sitesin [place], [place], [place] and [place]. This disclosure is being madepursuant to the Care Everywhere program and may not contain all information available regarding this patient. Last updated 17.[facility] Allergies No known active allergies Medications * Be aware that medications may not be up to date on this document. Alwaysverify current medications with the patient. Medication Sig Dispensed Refills Start Date End Date Status fluticasone propionate (FLONASE) 50 MCG/ACT nasal sprayIndications:Acute sinusitis, recurrence not specified, unspecified location [place] 2 (two) sprays into each nostril once daily 1 Each 12/13/2020 Active albuterol HFA (PROVENTIL;VENTOLIN;[place] OAIR) 108 (90 Base) MCG/ACT inhalerIndications:Acu te [...] of Treatment Not on file Care Teams Licensed Midwife Relationship Specialty Start Date End Date Brigitte Glasgow MD [address] [facility] [place] [address] PCP - General Pediatrics 10/19/19
--- OUTSIDE RECORDS SUMMARY | 2024-05-05 18:03 | XMS_ITS | Clinical Summary ---
Author Organization [facility] Address [address] [facility] [place] [address] Care Team Providers Care Patternmaker Sample Name Role Phone Brigitte Glasgow MD Primary Care Provider [phone] Source Comments [facility],non-owned Affiliates and Associated Physician Practices is amultiple site organization consisting of ambulatory clinics and hospital sitesin [place], [place], [place] and [place]. This disclosure is being madepursuant to the Care Everywhere program and may not contain all information available regarding this patient. Last updated 17.[facility] [employer] Allergies No known active allergies Medications * Be aware that medications may not be up to date on this document. Alwaysverify current medications with the patient. Medication Sig Dispensed Refills Start Date End Date Status fluticasone propionate (FLONASE) 50 MCG/ACT nasal sprayIndications:Acute sinusitis, recurrence not specified, unspecified location [place] 2 (two) sprays into each nostril once daily 1 Each 12/13/2020 Active albuterol HFA (PROVENTIL;VENTOLIN;[place] OAIR) 108 (90 Base) MCG/ACT inhalerIndications:Acu te [...] age to complete this topic Care Teams Patternmaker Sample Relationship Specialty Start Date End Date Brigitte Glasgow MD [address] [facility] [place] [address] PCP - General Pediatrics 10/19/19
[2024-05-05] MEDS: KETOROLAC (*BKC) 60 MG/2 ML VIAL IM (19:03)
[2024-05-05 19:19] VITALS: BP 142/82; PULSE 80; RESP 18; TEMP 36.4; O2SAT 100
--- NOTE | 2024-05-05 19:59 | PC.NURSE ---
currently waiting for central supply to bring ortho glass replacement
[2024-05-05 20:52] VITALS: BP 138/83; PULSE 76; RESP 17; O2SAT 100
[2024-05-05 20:53] VITALS: BP 138/83; PULSE 76; RESP 17; O2SAT 100
== END 2024-05-05 20:55 | disposition home or self-care (01) ==
PROVIDERS: Emergency Provider Emergency Medicine; PCP Family Medicine
DX: S52.501A Unspecified fracture of the lower end of right radius, initial encounter for closed fracture (principal); W11.XXXA Fall on and from ladder, initial encounter; F17.200 Nicotine dependence, unspecified, uncomplicated
CPT/HCPCS: 29125; 73090; 73110; 96372; 99284; A4565; J1885